=== PATIENT | male | born 1990 | race Caucasian/White ===

== ENCOUNTER 2020-07-19 06:25 | Emergency (ER) | payer OTHER ==
[2020-07-19 06:32] VITALS: RESP 18
[2020-07-19] MEDS ORDERED: FLUORESCEIN STRIPS 1 MG STRIP RIGHT EYE ONE (06:34)
[2020-07-19] MEDS ORDERED: PROPARACAINE 0.5% OPHTH DROPS 15 ML BTL RIGHT EYE STA (06:34)
--- NOTE | 2020-07-19 07:13 | ED ---
General Adult HPI - General Chief complaint: Eye Problems Stated complaint: ENT Time Seen by Provider: 07/19/20 06:34 Source: patient, RN notes reviewed Mode of arrival: ambulatory - History of Present Illness Initial comments: 30-year-old male presents to the emergency room for a chief complaint of foreign body in the right eye. 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 Patient reports that since that time has gotten progressively worse and his eye is now tearing and painful. Patient is unsure what exactly is in his right eye. Patient is up-to-date on tetanus 2 years ago.Patient has no other complaints at this time including shortness of breath, chest pain, abdominal pain, nausea or vomiting, headache, or visual changes. - Related Data Allergies Allergy/AdvReac Type Severity Reaction Status Date / Time No Known Allergies Allergy Verified 07/19/20 06:33 Review of Systems ROS Statement: Those systems with pertinent positive or pertinent negative responses have been documented in the HPI. ROS Other: All systems not noted in ROS Statement are negative. Past Medical History Past Medical History: No Reported History History of Any Multi-Drug Resistant Organisms: None Reported Additional Past Surgical History / Comment(s): back surgery Past Psychological History: No Psychological Hx Reported Smoking Status: Current every day smoker Past Alcohol Use History: Occasional Past Drug Use History: Marijuana General Exam General appearance: alert, in no apparent distress Head exam: Present: atraumatic, normocephalic, normal inspection Eye exam: Present: PERRL, EOMI, conjunctival injection, other (Foreign body noted in the center of conjunctiva). Absent: scleral icterus ENT exam: Present: normal exam, normal oropharynx, mucous membranes moist, TM's normal bilaterally, normal external ear exam Neck exam: Present: normal inspection, full ROM. Absent: tenderness, meningi smus, lymphadenopathy Respiratory exam: Present: normal lung sounds bilaterally. Absent: respiratory distress, wheezes, rales, rhonchi, stridor Cardiovascular Exam: Present: regular rate, normal rhythm, normal heart sounds. Absent: systolic murmur, diastolic murmur, rubs, gallop, clicks GI/Abdominal exam: Present: soft, normal bowel sounds. Absent: distended, tenderness, guarding, rebound, rigid Neurological exam: Present: alert Course Vital Signs 07/19/20 06:29 Temperature 98.7 F Pulse Rate 64 Respiratory 18 Rate Blood Pressure 123/74 O2 Sat by Pulse 99 Oximetry Medical Decision Making - Medical Decision Making Proparacaine was used to anesthetize the conjunctiva. Foreign body identified. Initially tried using a Q-tip and was unable to dislodge foreign body. I then tried a IV catheter and was unable to dislodge her body. I then attempted use of Liban brush without success. The eye was stained with fluorescein and visualized with the Wood's lamp, and negative Doni sign. No other foreign bodies noted. Visual acuity is 20/15 left eye and 20/25 right eye. I did discuss his case with Dr. Baez who offered to see patient in 30 minutes at his office. Patient will be discharged to go directly to his office. He will return for any worsening symptoms. Disposition Clinical Impression: Foreign body of conjunctiva, right Disposition: HOME SELF-CARE Condition: Good Instructions (If sedation given, give patient instructions): Eye Foreign Body (ED) Additional Instructions: Please go directly to Dr. Baez's office. Please use antibiotic ointment every 6 hours for 7 days. If you have any worsening symptoms return to the emergency room. Is patient prescribed a controlled substance at d/c from ED?: No Referrals: Sven Baez MD [STAFF PHYSICIAN] - 1-2 days Time of Disposition: 07:34
[2020-07-19] MEDS ORDERED: ERYTHROMYCIN 5 MG/GM OPHTH OINT 1 GM TUBE BOTH EYES STA (07:29)
[2020-07-19 07:54] VITALS: BP 119/77; PULSE 55; TEMP 97.8
== END 2020-07-19 07:55 | disposition home or self-care (01) ==
LOC: EC 06:25
DX: T15.11XA Foreign body in conjunctival sac, right eye, initial encounter (principal); F17.200 Nicotine dependence, unspecified, uncomplicated; X58.XXXA Exposure to other specified factors, initial encounter
CPT/HCPCS: 99283

== ENCOUNTER → 2024-06-05 | Outpatient (CLI) | payer OTHER ==
[2024-06-05 15:05] LABS: Basophils # (A) 0.13 X 10*3/uL (0.00-0.10); Basophils % (A) 1.4 %; Eosinophils # (A) 0.43 X 10*3/uL (0.04-0.35); Eosinophils % (A) 4.7 %; HCT 42.6 % (39.6-50.0); HGB 14.5 g/dL (13.0-17.0); Lymphocytes % (A) 46.7 %; MCH 31.3 pg (27.0-32.0); Mean Platelet Volume 10.1 FL (9.5-12.2); Monocytes # (A) 0.75 X 10*3/uL (0.20-1.00); Monocytes % (A) 8.1 %; NRBC Per 100 WBC 0 X 10*3/uL (0.00-0.01); Neutrophils # (A) 3.58 X 10*3/uL (1.80-7.70); Neutrophils % (A) 38.9 %; Platelet Count 289 X 10*3/uL (140-440); RBC 4.63 X 10*6/uL (4.40-5.60); RDW 12.2 % (11.5-14.5); WBC 9.21 X 10*3/uL (4.50-10.00)
[2024-06-05 15:35] LABS: Chol/HDL Ratio 4.02 Ratio
[2024-06-05 15:36] LABS: ALT 18 U/L (10-49); AST 16 U/L (14-35); Albumin 4.7 g/dL (3.8-4.9); Albumin/Globulin Ratio 2.24 Ratio (1.60-3.17); Alkaline Phosphatase 62 U/L (41-126); BUN/Creat Ratio 13.33 Ratio (12.00-20.00); Calcium 9.3 mg/dL (8.7-10.3); Carbon Dioxide 23.8 mmol/L (21.6-31.8); Chloride 106 mmol/L (96-109); Globulin 2.1 g/dL (1.6-3.3); Glucose 91 mg/dL (70-110); LDL Cholesterol,Calculated 78.4 mg/dL (0.0-131.0); Potassium 4.3 mmol/L (3.5-5.5); Sodium 141 mmol/L (135-145); Total Bilirubin 0.7 mg/dL (0.3-1.2); Total Protein 6.8 g/dL (6.2-8.2)
== END | disposition home or self-care (01) ==
LOC: LABWHC1 09:48
PROVIDERS: ATTEND Family Medicine
DX: Z00.00 Encounter for general adult medical examination without abnormal findings (principal)
CPT/HCPCS: 36415; 80053; 80061; 82306; 85025